=== PATIENT | female | born 1980 | race Caucasian/White ===

== ENCOUNTER 2016-06-10 13:44 | Day surgery (SDC) | payer OTHER ==
[~2016-06-10] VITALS: Ht 165.1 cm; Wt 101.0 kg
[~2016-06-10 13:44] MED LIST: CALC-649; FERR27TA; PREN-39
[2016-06-10 14:54] VITALS: Ht 165.1 cm; Wt 101.0 kg
[2016-06-10 15:33] VITALS: BP 122/93; PULSE 73; RESP 18
[2016-06-10] MEDS ORDERED: PROPOFOL 40 ML ONE (15:55)
[2016-06-10 16:07] VITALS: BP 119/72; RESP 20
--- NOTE | 2016-06-11 09:21 | GILP ---
DATE OF PROCEDURE: 06/10/2016 NAME OF PROCEDURE: Esophagogastroduodenoscopy with biopsies. SURGEON: Fernanda Santos MD. DESCRIPTION OF PROCEDURE: HISTORY AND INDICATIONS: The patient is being evaluated for abdominal pain and dyspepsia. PREMEDICATION: Monitored anesthesia care by anesthesiologist. INSTRUMENT USED: Olympus panendoscope. TECHNIQUE: After informed consent, with the patient/relatives understanding the procedure, its indic ations, potential risks and complications, including but not limited to: allergic reaction, bleeding , perforation or infection, and after all pertinent questions were answered to the patients satisfac tion, the patient/relatives signed witnessed informed consent. Following this, premedication was administered slowly IV push under careful cardiovascular and respi ratory monitoring with pulse oximetry, automatic blood pressure and incinerator plant laborer. Once the sedative effect was achieved the patient was place in the left lateral decubitus, the panen doscope was introduced and advanced under visual control. Careful examination of the upper gastrointestinal tract, both on insertion as well as withdrawal of the instrument disclosed the following findings: ESOPHAGUS: The distal esophagus shows erythema and edema of the mucosa of a mild degree. STOMACH: Upon entrance to the stomach air was insufflated, the gastric barrow distended normally. The mucosa of the fundus, body and antrum of the stomach was carefully examined and shows erythema and edema of the mucosa. Superficial erosions are present. PYLORUS: The pylorus appears patent and within normal limits, with no evidence of gastric outlet obs truction. DUODENUM: The duodenal mucosa was carefully examined in the duodenal bulb as well as the second port ion of the duodenum and appears unremarkable with no evidence of duodenitis, ulcer or neoplasm. The instrument was then withdrawn, the patient tolerated the procedure well and was transfer out of the endoscopy suite awake, and in good condition to continue recovery under observation IMPRESSION: 1. Mild distal esophagitis. 2. Moderate gastritis with erosions. Rule out Helicobacter pylori infection. Biopsies obtained. PLAN: The patient will be treated with PPIs, i.e. omeprazole 40 mg daily. Further recommendations w ill depend on the patient's clinical course as well as review of biopsies. Dictated By: FERNANDA SANTOS MS/LIZZ Conf#: [id number] DID#: [id number] CC: FERNANDA SANTOS;*EndCC*
== END 2016-06-10 18:53 | disposition home or self-care (01) ==
LOC: GIL 13:44
PROVIDERS: ATTEND Internal Medicine Gastroenterology
DX: K20.9 Esophagitis, unspecified (principal); K29.70 Gastritis, unspecified, without bleeding; K25.9 Gastric ulcer, unspecified as acute or chronic, without hemorrhage or perforation; E66.9 Obesity, unspecified; Z68.37 Body mass index [BMI] 37.0-37.9, adult; K76.0 Fatty (change of) liver, not elsewhere classified
CPT/HCPCS: 43239; Z7610; 88305; 88312